=== PATIENT | female | born 1985 | race American Indian/Alaskan Native ===

== ENCOUNTER 2016-06-19 17:41 | Emergency (ER) | payer OTHER ==
[2016-06-19 18:42] VITALS: BP 134/65
--- NOTE | 2016-06-20 07:11 | EDM.PDOC ---
ED HPI LOWER BACK PAIN/INJURY - General Chief Complaint: Back Pain or Injury Stated Complaint: BACK PAIN Time Seen by Provider: 06/19/16 19:30 Source of Information: Reports: Patient History Limitations: Reports: No limitations - History of Present Illness INITIAL COMMENTS - FREE TEXT/NARRATIVE: Notes chronic back pain but worse x2 days, no injury, took last flexeril. Ibuprofen at noon. Reports pain worse when sitting and leaning back. Has not contacted PCP for med refill. Notes at one time was diagnosed with scoliosis and then told she ddid not. Had asked for referral at some time but was not covered by insurance . Now she is covered. Does not report following up with PCP to request referral again. Location: Reports: lower, paraspinal. Denies: radiating pain Quality: Reports: Ache Improves with: Reports: Other (leaning forward) Worsens with: Reports: Other (sitting) Context: Reports: chronic pain/injury (chronic pain NO recent injury) - Related Data Allergies/ADRs: Allergies Allergy/AdvReac Type Severity Reaction Status Date / Time acetaminophen [From Tylenol] Allergy Cannot Verified 04/22/16 21:37 Remember Penicillins Allergy unknown Verified 04/22/16 21:37 Home Meds: Home Meds Ibuprofen [Motrin] 800 mg PO ASDIRECTED 02/14/16 [History] Cyclobenzaprine [Flexeril] 10 mg PO ASDIRECTED PRN 06/19/16 [History] Diclofenac Sodium [Voltaren 1% Gel] 1 units TOP ASDIRECTED PRN 06/19/16 [History ] Past Medical History - Past Health History Medical/Surgical History: Denies Medical/Surgical History HEENT 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: Impaired vision Cardiovascular 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: None Respiratory 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: None Gastrointestinal 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: None Genitourinary 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: None 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 CASTER 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: 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 Other OB/BYN History: 2002 Musculoskeletal 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: Back pain, chronic, Other (see below) Other Musculoskeletal History: scoliosis Neurological 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: None Psychiatric 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: None Endocrine/Metabolic 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: None Hematologic 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: None Immunologic 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: None Oncologic (Cancer) 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: None Other [facility] [place] - Infectious Disease History Infectious Disease 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: Chicken pox - Past Surgical History Head Surgeries/Procedures: Reports: None GI Surgical 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: Cholecystectomy Other Female Surgeries/Procedures: 06/19/2016 just starting to spot like she does before her period. Social & Family History - Family History Family Medical History: Noncontributory - Tobacco Use Smoking Status *Q: Current Every Day Smoker Years of Tobacco use: 10 Packs/Tins Daily: 0.5 Second Hand Smoke Exposure: Yes - Caffeine Use Caffeine Use: Reports: Coffee - Recreational Drug Use Recreational Drug Use: No ED ROS GENERAL - Review of Systems Review Of Systems: See Below Constitutional: Reports: no symptoms GI/Abdominal: Reports: No symptoms Musculoskeletal: Reports: back pain. Denies: leg pain Skin: Reports: no symptoms Neurological: Reports: no symptoms ED EXAM,LOWER BACK PAIN/INJURY - Physical Exam Exam: See Below Exam Limited By: No limitations General Appearance: alert, other (agitated) Eye Exam: bilateral eye: EOMI Ears: normal external exam Nose: normal inspection Throat/Mouth: Normal inspection Head: normocephalic Neck: full range of motion Respiratory/Chest: no respiratory distress, lungs clear Cardiovascular: regular rate, rhythm Back Exam: normal inspection, full range of motion, vertebral tenderness (low lumbar with palpation. Stand from sitting position with ease demonstrates bending forward to make wesley feel better able to touch finger to floor. returns to sitting position on cart without facial grimace or guarding. able to scoot back someme guarding with twisting movment. ) Extremities: normal inspection, normal range of motion Neurological: alert, normal plantar flexion, normal gait, no motor/sensory deficits, oriented x 3 Psychiatric: other (agitated upon entering exam room increases with discussion of treatment plan with antiinflamatory heat alternating with ice. Offered xray, explained that since no injury would likely be unchanged. No indication for CT. Noted that narcotics would not be appropriate with finding. ) Course - Vital Signs Last Recorded V/S: Last Vital Signs Temp 97.9 F 06/19/16 18:22 Pulse 70 06/19/16 18:22 Resp 16 06/19/16 18:22 BP 134/65 06/19/16 18:22 Pulse Ox 100 06/19/16 18:22 - Orders/Labs/Meds Labs: Laboratory Tests 06/19/16 06/19/16 06/19/16 Range/Units 18:35 18:35 18:35 Urine Color Dark yellow (YELLOW) Urine Appearance Turbid (CLEAR) Urine pH 5.0 (5.0-9.0) Ur Specific [place] 1.025 (1.005-1.030) Urine Protein Trace H (NEGATIVE) Urine Glucose (UA) Negative (NEGATIVE) Urine Ketones Trace H (NEGATIVE) Urine Occult Blood Large H (NEGATIVE) Urine Nitrite Negative (NEGATIVE) Urine Bilirubin Negative (NEGATIVE) Urine Urobilinogen 0.2 (0.2-1.0) mg/dL Ur Leukocyte Esterase Negative (NEGATIVE) Urine RBC >100 H /HPF Urine WBC 0-5 (0-5/HPF) /HPF Ur Epithelial Cells Few /HPF Urine Bacteria Moderate H (0-FEW/HPF) /HPF Urine HCG, Qual Negative Urine Opiates Screen Negative (NEGATIVE) Ur Oxycodone Screen Positive H (NEGATIVE) Urine Methadone Screen Negative (NEGATIVE) Ur Barbiturates Screen Negative (NEGATIVE) U Tricyclic Antidepress Negative (NEGATIVE) Ur Phencyclidine Scrn Negative (NEGATIVE) Ur Amphetamine Screen Negative (NEGATIVE) U Methamphetamines Scrn Negative (NEGATIVE) Urine MDMA Screen Negative (NEGATIVE) U Benzodiazepines Scrn Negative (NEGATIVE) Urine Cocaine Screen Negative (NEGATIVE) U Marijuana (THC) Screen Positive H (NEGATIVE) - Re-Assessments/Exams Free Text/Narrative Re-Assessment/Exam: Patient left verbally aggressive. Expressed displeasure when asked for input into to treatment plan. Appeared to be increasingly upset when informed narcotics would not be provided for this encounter and other alternatives recommended. Departure - Departure Time of Disposition: 20:50 Disposition: Left Without Being Seen 07 Condition: undetermined Clinical Impression: Back pain, chronic Qualifiers: Back pain location: low back pain Back pain laterality: right Sciatica presence : without sciatica Qualified Code(s): M54.5 - Low back pain Forms: ED Department Discharge
== END 2016-06-19 19:49 | disposition left against medical advice (07) ==
LOC: DL.ED 17:41
DX: M54.5 Low back pain (principal); G89.29 Other chronic pain; F17.210 Nicotine dependence, cigarettes, uncomplicated; Z88.6 Allergy status to analgesic agent; Z88.0 Allergy status to penicillin; Z90.49 Acquired absence of other specified parts of digestive tract
CPT/HCPCS: 80305; 81001; 81025; 99282

== ENCOUNTER 2016-08-30 18:37 | Emergency (ER) | payer MEDICAID, OTHER ==
[2016-08-30 20:05] VITALS: BP 109/61
== END 2016-08-30 21:26 | disposition left against medical advice (07) ==
LOC: DL.ED 18:37
DX: Z53.21 Procedure and treatment not carried out due to patient leaving prior to being seen by health care provider (principal)

== ENCOUNTER 2016-09-29 07:33 | Day surgery (SDC) | payer MEDICAID, OTHER ==
[~2016-09-29 07:33] MED LIST: Midazolam 1 MG/ML 2 ML SDV IV ONE; Midazolam 1 MG/ML 2 ML SDV ONE; fentaNYL 100 MCG/2 ML SDV IV ONE; fentaNYL 100 MCG/2 ML SDV ONE
[2016-09-29] MEDS ORDERED: Dextrose 5%-0.45% NaCl 1,000 ML IV SCH (07:50)
[2016-09-29] MEDS ORDERED: fentaNYL 100 MCG/2 ML SDV IV ONE ×2 (08:00→08:01)
[2016-09-29] MEDS ORDERED: Midazolam 1 MG/ML 2 ML SDV IV ONE ×2 (08:01)
[2016-09-29 10:09] VITALS: BP 114/61
--- NOTE | 2016-09-29 12:48 | OR ---
DATE: 09/29/2016 PROCEDURES: Esophagogastroduodenoscopy and multiple pinch biopsies. INSTRUMENT USED: GIF-Q180 Olympus video panendoscope. PREMEDICATIONS: No oral topical anesthesia used. Fentanyl 100 mcg intravenous, Versed 2 mg intravenous. The procedure was done under pulse oximetry, BP recording, and chief librarian music department. INDICATION: The patient with persistent upper abdominal pain, dyspepsia, as well as intermittent high dysphagia, unexplained and not responsive to medical measures. Esophagogastroduodenoscopy is performed for detection of any active erosive lesions, [place] esophagus and/or malignancy also under consideration, H. pylori status to be determined, small bowel biopsies to be obtained for celiac disease if indicated, esophageal dilatations if indicated, endoscopic hemostasis therapy if needed. DESCRIPTION OF PROCEDURE: The scope was passed with ease. Adequate visualization of the esophagus was made from proximal to distal areas. No upper esophageal lesions identified. No distal esophageal stricture. No uphill or downhill esophageal varices. No Rabia Boyd tear. No evidence of erosive esophagitis by Benton criteria. No esophageal polyp or tumor mass identified. Z-line was seen at around 40 cm distal to the oral verge, configuration consistent with grade 1 by ZAP classification. No proximal gastric varices noted. Gastric fundus examination by retroflexion showed no polypoid lesions. No gastric ulcer, malignant mass, or vascular ectasia identified. Duodenal bulb showed no ulcer. Visualized second part of the duodenum was unremarkable. Multiple pinch biopsies, 4 in number were taken from different areas of the second part of the duodenum, and tissues were also obtained from the duodenal bulb at 9 and 12 o'clock positions and sent for any histopathologic evidence of celiac disease. Multiple pinch biopsies were obtained from the gastric antrum and proximal body and sent for PyloriTek test for H. pylori and histopathology. No bleeding was noted from any of the visualized areas at the completion of the examination. Photographs were taken of the duodenal bulb, gastric antrum, fundus, and distal esophagus. IMPRESSION: Normal study. The patient tolerated the procedure well. [facility] /[id number]
--- NOTE | 2016-09-29 13:16 | LETTER ---
09/29/2016 [place] [address] RE: RADHANAOMI TOLEDO : 1985 Dear Ms. Arriaza: Ms. Naomi Nielson had esophagogastroduodenoscopy done this morning and she tolerated the procedure well. I herewith send a copy of the endoscopy note and photographs for your review. She is put on omeprazole 20 mg p.o. daily at a.m., response to be noted. Thank you. Sincerely, [facility] /[id number]
== END 2016-09-29 10:16 | disposition home or self-care (01) ==
LOC: DL.ENDO 07:33
PROVIDERS: ATTEND Internal Medicine Gastroenterology
DX: K29.50 Unspecified chronic gastritis without bleeding (principal); E66.9 Obesity, unspecified; Z88.0 Allergy status to penicillin; Z88.8 Allergy status to other drugs, medicaments and biological substances; Z79.899 Other long term (current) drug therapy; Z90.49 Acquired absence of other specified parts of digestive tract
CPT/HCPCS: 43239; 87077; J2250; J3010; J7042

== ENCOUNTER 2017-08-20 12:36 | Emergency (ER) | payer MEDICAID, OTHER ==
[2017-08-20 12:51] VITALS: BP 121/84
[2017-08-20 13:45] LABS: CHLORIDE,CL 111 mmol/L (101-111); SODIUM,NA 142 mmol/L (135-145)
== END 2017-08-20 13:50 | disposition left against medical advice (07) ==
LOC: DL.ED 12:36
DX: Z53.20 Procedure and treatment not carried out because of patient's decision for unspecified reasons (principal)
CPT/HCPCS: 36415; 80053; 85025; 99284; G0480

== ENCOUNTER 2017-10-21 13:08 | Emergency (ER) | payer MEDICAID, OTHER ==
[2017-10-21 13:19] VITALS: BP 127/80
[2017-10-21] MEDS ORDERED: Sodium Chloride 0.9% 1,000 ML IV SCH (13:30)
[2017-10-21] MEDS ORDERED: Ondansetron 4 MG/2 ML SDV IV ONE (13:56)
[2017-10-21 14:06] LABS: ACETAMINOPHEN < 10; ANION GAP 11.3; CHLORIDE,CL 106 mmol/L (101-111); SODIUM,NA 139 mmol/L (135-145)
[2017-10-21] MEDS ORDERED: HYDROmorphone 0.5 MG/0.5 ML Syringe IVPUSH ONE (14:25)
--- NOTE | 2017-10-21 14:26 | EDM.PDOC ---
Scribed by Josie Rizzo 10/21/17 4054 for Teddy Phillips PA ED HPI GENERAL MEDICAL PROBLEM - General Chief Complaint: Abdominal Pain Stated Complaint: RT SIDE PAIN Time Seen by Provider: 10/21/17 13:19 Source of Information: Reports: Patient, RN, RN Notes Reviewed History Limitations: Reports: No Limitations - History of Present Illness INITIAL COMMENTS - FREE TEXT/NARRATIVE: Patient presents to ER with right lower abdominal pain that radiates to her vagina. This started at 07:30 a.m. She increased her water intake but took no medications. She has a history of previous UTIs. She has a kidney doctor because she has a mass on her left kidney. She had a bowel movement this morning x1 with increased pain. She had had no bowel movement x5 to 6 days before that. Onset: Today Duration: Getting Worse Location: Reports: Abdomen Quality: Reports: Ache Severity: Severe Improves with: Reports: None Worsens with: Reports: None Associated Symptoms: Reports: No Other Symptoms Right Abdomen Pain Score (Numeric/FACES): 6 - Related Data Allergies Allergy/AdvReac Type Severity Reaction Status Date / Time acetaminophen [From Tylenol] Allergy Rash Verified 10/21/17 13:19 Penicillins Allergy unknown Verified 10/21/17 13:19 Home Meds: Home Meds Ibuprofen [Motrin] 800 mg PO Q6H 02/14/16 [History] Cyclobenzaprine [Flexeril] 1 tab PO TID PRN 09/27/16 [History] Gabapentin [Neurontin] 100 mg PO BEDTIME 08/20/17 [History] Metoclopramide HCl [Reglan] 125 mg PO ASDIRECTED 08/20/17 [History] Ondansetron HCl [Zofran] 4 mg PO ASDIRECTED 08/20/17 [History] Prochlorperazine [Compazine] 5 mg PO ASDIRECTED 08/20/17 [History] Past Medical History - Past Health History Medical/Surgical History: Denies Medical/Surgical History HEENT 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: Hard of Hearing, Impaired Vision, Other (See Below) Other HEENT History: WEARS CORRECTIVE LENS. 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 KNEE INJECTIONS. HX OF FRACTURE - L ANKLE, R WRIST Neurological 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: None Psychiatric 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: None Endocrine/Metabolic 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: Obesity/BMI 30+ Hematologic 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: Anemia Immunologic 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: None Oncologic (Cancer) 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: Cervix, Leukemia Dermatologic 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: Other (See Below) Other Dermatologic History: going [place] [facility] [place] HX OF ROSCEA - Infectious Disease History Infectious Disease 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: Chicken Pox, Helicobacter Pylori, Human Papilloma Virus (HPV) - Past Surgical History Head Surgeries/Procedures: Reports: None HEENT Surgical 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: None Cardiovascular Surgical 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: None Respiratory Surgical 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: None GI Surgical 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: Cholecystectomy, Colonoscopy, EGD Female Surgical 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: D&C, LEEP Other Female Surgeries/Procedures: 06/19/2016 just starting to spot like she does before her period. Endocrine Surgical 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: None Neurological Surgical 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: None Musculoskeletal Surgical 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: None Oncologic Surgical 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: None Dermatological Surgical 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: None Social & Family History - Family History Family Medical History: Noncontributory - Caffeine Use Caffeine Use: Reports: Coffee Other Caffeine Use: AVERAGE OF 5 8OZ CAFFIENATED BEVERAGES DAILY ED ROS GENERAL - Review of Systems Review Of Systems: ROS reveals no pertinent complaints other than HPI. ED EXAM, GI/ABD - Physical Exam Exam: See Below Exam Limited By: No Limitations General Appearance: Alert, WD/WN, No Apparent Distress Eyes: Bilateral: Normal Appearance Ears: Normal External Exam, Normal Canal, Hearing Grossly Normal, Normal TMs Nose: Normal Inspection, Normal Mucosa, No Blood Throat/Mouth: Normal Inspection, Normal Lips, Normal Teeth, Normal Gums, Normal Oropharynx, Normal Voice, No Airway Compromise Head: Atraumatic, Normocephalic Neck: Normal Inspection, Supple, Non-Tender, Full Range of Motion Respiratory/Chest: No Respiratory Distress, Lungs Clear, Normal Breath Sounds, No Accessory Muscle Use, Chest Non-Tender Cardiovascular: Normal Peripheral Pulses, Regular Rate, Rhythm, No Edema, No Gallop, No JVD, No Murmur, No Rub GI/Abdominal Exam: Normal Bowel Sounds, No Organomegaly, Rebound (tenderness), Other (right lower quadrant pain. Midlower abdominal pain to palpation.) (Female) Exam: Deferred Rectal (Female) Exam: Deferred Back Exam: Normal Inspection, Full Range of Motion, NT Extremities: Normal Inspection, Normal Range of Motion, Non-Tender, Normal Capillary Refill, No Pedal Edema Neurological: Alert, Oriented, CN II-XII Intact, Normal Cognition, Normal Gait, Normal Reflexes, No Motor/Sensory Deficits Psychiatric: Normal Affect, Normal Mood Skin Exam: Warm, Dry, Intact, Normal Color, No Rash Lymphatic: No Adenopathy Course - Vital Signs Last Recorded V/S: Last Vital Signs Temp 36.4 C 10/21/17 13:14 Pulse 88 10/21/17 13:14 Resp 16 10/21/17 13:14 BP 127/80 10/21/17 13:14 Pulse Ox 100 10/21/17 13:14 - Orders/Labs/Meds Orders: Active Orders 24 hr Category Date Time Status CULTURE BLOOD [BC] Stat Lab 10/21/17 13:24 Ordered DRUG SCREEN URINE BIORAD [URCHEM] Stat Lab 10/21/17 13:24 Ordered HCG QUALITATIVE,URINE [URCHEM] Stat Lab 10/21/17 13:24 Ordered UA W/MICROSCOPIC [URIN] Stat Lab 10/21/17 13:24 Ordered Sodium Chloride 0.9% [Normal Saline] 1,000 ml Med 10/21/17 13:30 Ordered IV ASDIRECTED Medication Orders Sodium Chloride (Normal Saline) 1,000 mls @ 999 mls/hr IV ASDIRECTED YVETTE Last Admin: 10/21/17 13:42 Dose: 999 mls/hr Labs: Laboratory Tests 10/21/17 10/21/17 10/21/17 Range/Units 13:29 13:29 13:29 WBC (5.0-10.0) 10^3/uL RBC (4.2-5.4) 10^6/uL Hgb (12.0-16.0) g/dL Hct (37.0-47.0) % MCV (80-100) fL MCH (27.0-34.0) pg MCHC (33.0-35.0) g/dL Plt Count (150-450) 10^3/uL Neut % (Auto) (42.2-75.2) % Lymph % (Auto) (20.5-50.1) % [place] % (Auto) (2-8) % Eos % (Auto) (1.0-3.0) % Baso % (Auto) (0.0-1.0) % Sodium (135-145) mmol/L Potassium (3.6-5.0) mmol/L Chloride (101-111) mmol/L Carbon Dioxide (21.0-31.0) mmol/L Anion Gap BUN (7-18) mg/dL Creatinine (0.6-1.3) mg/dL Est Cr Clr Drug Dosing mL/min Estimated GFR (MDRD) BUN/Creatinine Ratio Glucose (74-105) mg/dL Lactic Acid (0.5-2.2) mmol/L Calcium (8.4-10.2) mg/dl Total Bilirubin (0.2-1.0) mg/dL AST (10-42) IU/L ALT (10-60) IU/L Alkaline Phosphatase (42-121) IU/L Total Protein (6.7-8.2) g/dl Albumin (3.2-5.5) g/dl Globulin Albumin/Globulin Ratio Amylase (28-100) U/L Lipase (22-51) U/L Urine Color Yellow (YELLOW) Urine Appearance Clear (CLEAR) Urine pH 7.0 (5.0-9.0) Ur Specific [place] 1.020 (1.005-1.030) Urine Protein Negative (NEGATIVE) Urine Glucose (UA) Negative (NEGATIVE) Urine Ketones 15 H (NEGATIVE) Urine Occult Blood Moderate H (NEGATIVE) Urine Nitrite Negative (NEGATIVE) Urine Bilirubin Small H (NEGATIVE) Urine Urobilinogen 1.0 (0.2-1.0) mg/dL Ur Leukocyte Esterase Trace H (NEGATIVE) Urine RBC 0-5 /HPF Urine WBC 0-5 (0-5/HPF) /HPF Ur Epithelial Cells Many H /HPF Calcium Oxalate Crystal Few H /HPF Urine Bacteria Few (0-FEW/HPF) /HPF Urine Mucus Moderate H /LPF Urinalysis Comment See note Urine HCG, Qual Negative Urine Opiates Screen Negative (NEGATIVE) Ur Oxycodone Screen Positive H (NEGATIVE) Urine Methadone Screen Negative (NEGATIVE) Acetaminophen Ur Barbiturates Screen Negative (NEGATIVE) U Tricyclic Antidepress Negative (NEGATIVE) Ur Phencyclidine Scrn Negative (NEGATIVE) Ur Amphetamine Screen Positive H (NEGATIVE) U Methamphetamines Scrn Positive H (NEGATIVE) Urine MDMA Screen Negative (NEGATIVE) U Benzodiazepines Scrn Negative (NEGATIVE) Urine Cocaine Screen Negative (NEGATIVE) U Marijuana (THC) Screen Positive H (NEGATIVE) 10/21/17 10/21/17 10/21/17 Range/Units 13:35 13:35 13:35 WBC 15.2 H (5.0-10.0) 10^3/uL RBC 4.76 (4.2-5.4) 10^6/uL Hgb 14.4 (12.0-16.0) g/dL Hct 42.2 (37.0-47.0) % MCV 88.7 (80-100) fL MCH 30.3 (27.0-34.0) pg MCHC 34.1 (33.0-35.0) g/dL Plt Count 186 (150-450) 10^3/uL Neut % (Auto) 91.4 H (42.2-75.2) % Lymph % (Auto) 4.0 L (20.5-50.1) % [place] % (Auto) 3.8 (2-8) % Eos % (Auto) 0.6 L (1.0-3.0) % Baso % (Auto) 0.2 (0.0-1.0) % Sodium (135-145) mmol/L Potassium (3.6-5.0) mmol/L Chloride (101-111) mmol/L Carbon Dioxide (21.0-31.0) mmol/L Anion Gap BUN (7-18) mg/dL Creatinine (0.6-1.3) mg/dL Est Cr Clr Drug Dosing mL/min Estimated GFR (MDRD) BUN/Creatinine Ratio Glucose (74-105) mg/dL Lactic Acid 1.2 (0.5-2.2) mmol/L Calcium (8.4-10.2) mg/dl Total Bilirubin (0.2-1.0) mg/dL AST (10-42) IU/L ALT (10-60) IU/L Alkaline Phosphatase (42-121) IU/L Total Protein (6.7-8.2) g/dl Albumin (3.2-5.5) g/dl Globulin Albumin/Globulin Ratio Amylase 25 L (28-100) U/L Lipase 19 L (22-51) U/L Urine Color (YELLOW) Urine Appearance (CLEAR) Urine pH (5.0-9.0) Ur Specific [place] (1.005-1.030) Urine Protein (NEGATIVE) Urine Glucose (UA) (NEGATIVE) Urine Ketones (NEGATIVE) Urine Occult Blood (NEGATIVE) Urine Nitrite (NEGATIVE) Urine Bilirubin (NEGATIVE) Urine Urobilinogen (0.2-1.0) mg/dL Ur Leukocyte Esterase (NEGATIVE) Urine RBC /HPF Urine WBC (0-5/HPF) /HPF Ur Epithelial Cells /HPF Calcium Oxalate Crystal /HPF Urine Bacteria (0-FEW/HPF) /HPF Urine Mucus /LPF Urinalysis Comment Urine HCG, Qual Urine Opiates Screen (NEGATIVE) Ur Oxycodone Screen (NEGATIVE) Urine Methadone Screen (NEGATIVE) Acetaminophen < 10 Ur Barbiturates Screen (NEGATIVE) U Tricyclic Antidepress (NEGATIVE) Ur Phencyclidine Scrn (NEGATIVE) Ur Amphetamine Screen (NEGATIVE) U Methamphetamines Scrn (NEGATIVE) Urine MDMA Screen (NEGATIVE) U Benzodiazepines Scrn (NEGATIVE) Urine Cocaine Screen (NEGATIVE) U Marijuana (THC) Screen (NEGATIVE) 10/21/17 Range/Units 13:35 WBC (5.0-10.0) 10^3/uL RBC (4.2-5.4) 10^6/uL Hgb (12.0-16.0) g/dL Hct (37.0-47.0) % MCV (80-100) fL MCH (27.0-34.0) pg MCHC (33.0-35.0) g/dL Plt Count (150-450) 10^3/uL Neut % (Auto) (42.2-75.2) % Lymph % (Auto) (20.5-50.1) % [place] % (Auto) (2-8) % Eos % (Auto) (1.0-3.0) % Baso % (Auto) (0.0-1.0) % Sodium 139 (135-145) mmol/L Potassium 3.3 L (3.6-5.0) mmol/L Chloride 106 (101-111) mmol/L Carbon Dioxide 25.0 (21.0-31.0) mmol/L Anion Gap 11.3 BUN 10 (7-18) mg/dL Creatinine 0.8 (0.6-1.3) mg/dL Est Cr Clr Drug Dosing 95.38 mL/min Estimated GFR (MDRD) > 60 BUN/Creatinine Ratio 12.50 Glucose 73 L (74-105) mg/dL Lactic Acid (0.5-2.2) mmol/L Calcium 9.3 (8.4-10.2) mg/dl Total Bilirubin 1.2 H (0.2-1.0) mg/dL AST 23 (10-42) IU/L ALT 14 (10-60) IU/L Alkaline Phosphatase 56 (42-121) IU/L Total Protein 7.2 (6.7-8.2) g/dl Albumin 4.5 (3.2-5.5) g/dl Globulin 2.7 Albumin/Globulin Ratio 1.67 Amylase (28-100) U/L Lipase (22-51) U/L Urine Color (YELLOW) Urine Appearance (CLEAR) Urine pH (5.0-9.0) Ur Specific [place] (1.005-1.030) Urine Protein (NEGATIVE) Urine Glucose (UA) (NEGATIVE) Urine Ketones (NEGATIVE) Urine Occult Blood (NEGATIVE) Urine Nitrite (NEGATIVE) Urine Bilirubin (NEGATIVE) Urine Urobilinogen (0.2-1.0) mg/dL Ur Leukocyte Esterase (NEGATIVE) Urine RBC /HPF Urine WBC (0-5/HPF) /HPF Ur Epithelial Cells /HPF Calcium Oxalate Crystal /HPF Urine Bacteria (0-FEW/HPF) /HPF Urine Mucus /LPF Urinalysis Comment Urine HCG, Qual Urine Opiates Screen (NEGATIVE) Ur Oxycodone Screen (NEGATIVE) Urine Methadone Screen (NEGATIVE) Acetaminophen Ur Barbiturates Screen (NEGATIVE) U Tricyclic Antidepress (NEGATIVE) Ur Phencyclidine Scrn (NEGATIVE) Ur Amphetamine Screen (NEGATIVE) U Methamphetamines Scrn (NEGATIVE) Urine MDMA Screen (NEGATIVE) U Benzodiazepines Scrn (NEGATIVE) Urine Cocaine Screen (NEGATIVE) U Marijuana (THC) Screen (NEGATIVE) Meds: Medications Generic Name Dose Route Start Last Admin Trade Name Freq PRN Reason Stop Dose Admin Sodium Chloride 1,000 mls @ 999 mls/hr 10/21/17 13:30 10/21/17 13:42 Normal Saline IV 999 mls/hr ASDIRECTED YVETTE Administration Discontinued Medications Generic Name Dose Route Start Last Admin Trade Name Magi PRN Reason Stop Dose Admin Ondansetron HCl 4 mg 10/21/17 13:56 10/21/17 14:00 Zofran IV 10/21/17 13:57 4 mg ONETIME ONE Administration - Re-Assessments/Exams Free Text/Narrative Re-Assessment/Exam: 10/21/17 14:01 Initially the patient denied any drug or ETOH use, but when she was confronted with the drug screen results. The patient admitted to taking Oxycodone yesterday for chronic pain. The patient also admitted to using meth and smoking marijuana. The patient then reports that she has some "mental health issues" and she is going to be treated for "those things." Departure - Departure Time of Disposition: 14:22 Disposition: DC/Tfer to [facility] 02 Condition: Poor Clinical Impression: Abdominal pain Qualifiers: Abdominal location: right lower quadrant Qualified Code(s): R10.31 - Right lower quadrant pain Leukocytosis Qualifiers: Leukocytosis type: bandemia Qualified Code(s): D72.825 - Bandemia - Discharge Information *PRESCRIPTION DRUG MONITORING PROGRAM REVIEWED*: No *COPY OF PRESCRIPTION DRUG MONITORING REPORT IN PATIENT LIZZETH: No Forms: Interfacility Transfer EMTALA Care Plan Goals: Discussed the examination, history and lab results during the visit. The patient was given IV Zofran and IV Dilaudid prior to transport. The patient will be transported by [facility]. - My Orders Last 24 Hours: My Active Orders 10/21/17 13:24 CULTURE BLOOD [BC] Stat DRUG SCREEN URINE BIORAD [URCHEM] Stat HCG QUALITATIVE,URINE [URCHEM] Stat UA W/MICROSCOPIC [URIN] Stat 10/21/17 13:30 Sodium Chloride 0.9% [Normal Saline] 1,000 ml IV ASDIRECTED - Assessment/Plan Last 24 Hours: My Active Orders 10/21/17 13:24 CULTURE BLOOD [BC] Stat DRUG SCREEN URINE BIORAD [URCHEM] Stat HCG QUALITATIVE,URINE [URCHEM] Stat UA W/MICROSCOPIC [URIN] Stat 10/21/17 13:30 Sodium Chloride 0.9% [Normal Saline] 1,000 ml IV ASDIRECTED I have read and agree with the documentation that has been completed regarding this visit. By signing this record, I attest that the documentation was completed in my physical presence and is an accurate record of the encounter.
== END 2017-10-21 14:57 ==
LOC: DL.ED 13:08
DX: R10.31 Right lower quadrant pain (principal); D72.825 Bandemia; E66.9 Obesity, unspecified; Z88.0 Allergy status to penicillin; Z88.8 Allergy status to other drugs, medicaments and biological substances
CPT/HCPCS: 36415; 80053; 80305; 81001; 81025; 82150; 83605; 83690; 85025; 87040; 87077; 87186; 96374; 96375; 99284; 99285; G0480; J1170; J2405; J7030

== ENCOUNTER 2022-01-08 13:18 | Inpatient (IN) | payer MEDICAID, OTHER ==
[~2022-01-08 13:18] MED LIST changes: -Midazolam 1 MG/ML 2 ML SDV IV ONE; -Midazolam 1 MG/ML 2 ML SDV ONE; +Sodium Chloride 0.9% 10 ML Syringe FLUSH PRN; -fentaNYL 100 MCG/2 ML SDV IV ONE; -fentaNYL 100 MCG/2 ML SDV ONE
[2022-01-08] MEDS ORDERED: Sodium Chloride 0.9% 1,000 ML IV ONE ×2 (13:38→15:01)
[2022-01-08 13:52] LABS: ANION GAP 11.4 mEq/L (7-13); CHLORIDE,CL 103 mmol/L (98-107); SODIUM,NA 138 mmol/L (136-145)
[2022-01-08 13:54] LABS: ESTIMATED GFR 106 mL/min (>=60)
[2022-01-08 14:05] LABS: AMPHETAMINES,URINE POSITIVE (NEGATIVE); BARBITURATES,URINE NEGATIVE (NEGATIVE); BENZODIAZEPINE,URINE NEGATIVE (NEGATIVE); MDMA (ECSTASY), URINE NEGATIVE (NEGATIVE); METHADONE,URINE NEGATIVE (NEGATIVE); METHAMPHETAMINES,URINE POSITIVE (NEGATIVE); OPIATES,URINE POSITIVE (NEGATIVE); OXYCODONE,URINE NEGATIVE (NEGATIVE); PHENCYCLIDINE,URINE NEGATIVE (NEGATIVE); TCA,URINE NEGATIVE (NEGATIVE)
[2022-01-08] MEDS ORDERED: cefTRIAXone 2 GM in Sodium Chloride 0.9% 100 ML IV ONE (14:37)
[2022-01-08] MEDS ORDERED: Magnesium Sulfate/Water 2 GM in Premix Bag 1 BAG IV ONE (14:49)
[2022-01-08] MEDS ORDERED: Doxycycline Monohydrate 100 MG Cap PO ONE (15:09)
[2022-01-08] MEDS ORDERED: metroNIDAZOLE 250 MG Tab PO ONE (15:10)
[2022-01-08] MEDS ORDERED: oxyCODONE 5 MG Tab PO PRN (17:14)
[2022-01-08] MEDS ORDERED: Ondansetron 4 MG/2 ML SDV IVPUSH PRN (17:14)
[2022-01-08] MEDS ORDERED: Morphine 2 MG/ML SYRINGE IVPUSH PRN (17:14)
[2022-01-08] MEDS ORDERED: LORazepam 2 MG/ML SDV IVPUSH PRN (17:14)
[2022-01-08] MEDS ORDERED: Acetaminophen 325 MG Tab PO PRN (17:14)
[2022-01-08] MEDS ORDERED: Lactated Ringers 1,000 ML IV SCH (17:15)
[2022-01-08] MEDS ORDERED: Pantoprazole 40 MG Vial IVPUSH SCH (17:30)
[2022-01-08] MEDS ORDERED: Azithromycin 250 MG Tab PO ONE (17:31)
[2022-01-08] MEDS ORDERED: Naproxen 250 MG Tab PO PRN (19:21)
[2022-01-08] MEDS ORDERED: metroNIDAZOLE 250 MG Tab PO SCH (21:00)
[2022-01-09 00:36] VITALS: BP 113/73; PULSE 59
[2022-01-09] MEDS ORDERED: Nicotine 7 MG/24 Hr Patch TRDERM SCH (09:00)
[2022-01-09] MEDS ORDERED: cefTRIAXone 2 GM in Sodium Chloride 0.9% 100 ML IV SCH (09:00)
[2022-01-09] MEDS ORDERED: Enoxaparin 40 MG/0.4 ML Syringe SUBCUT SCH (09:00)
[2022-01-10] MEDS ORDERED: Vancomycin 1 GM SDV ONE ×2 (14:43→21:34)
[2022-01-10] MEDS ORDERED: Sodium Chloride 0.9% 250 ML ONE ×2 (14:48→21:34)
[2022-01-11] MEDS ORDERED: Sodium Chloride 0.9% 250 ML ONE (06:10)
[2022-01-11] MEDS ORDERED: Vancomycin 1 GM SDV ONE (06:10)
[2022-01-11] MEDS ORDERED: traMADol 50 MG Tab ONE ×2 (12:43→19:50)
[2022-01-11] MEDS ORDERED: Potassium Chloride 10 MEQ Tab.ER ONE (18:06)
[2022-01-11] MEDS ORDERED: Doxycycline Monohydrate 100 MG Cap ONE (19:50)
[2022-01-12 07:47] LABS: C.TRACHOMATIS BY TMA Negative (Negative); N.GONORRHOEAE BY TMA Negative (Negative)
[2022-01-12] MEDS ORDERED: Doxycycline Monohydrate 100 MG Cap ONE (09:20)
[2022-02-03 10:55] LABS: ANION GAP 9.5 mEq/L (7-13)
[2022-02-06 10:48] LABS: ANION GAP 10.5 mEq/L (7-13)
[2022-02-06 13:28] LABS: ANION GAP 9.3 mEq/L (7-13)
[2022-02-06 15:24] LABS: ANION GAP 8.6 mEq/L (7-13)
== END 2022-01-12 12:30 | disposition home or self-care (01) | DRG 872 ==
LOC: DL.ED 13:18 → DL.MS 15:44 → DL.ZCENSUS 01-09 13:34
PROVIDERS: ADMIT Internal Medicine; ATTEND Internal Medicine
DX: A41.51 Sepsis due to Escherichia coli [E. coli] (principal); N39.0 Urinary tract infection, site not specified; N83.209 Unspecified ovarian cyst, unspecified side; N73.9 Female pelvic inflammatory disease, unspecified; H54.7 Unspecified visual loss; H91.92 Unspecified hearing loss, left ear; G89.29 Other chronic pain; E66.9 Obesity, unspecified; Z86.19 Personal history of other infectious and parasitic diseases; Z88.6 Allergy status to analgesic agent; Z87.440 Personal history of urinary (tract) infections; Z88.0 Allergy status to penicillin; Z90.49 Acquired absence of other specified parts of digestive tract; F17.210 Nicotine dependence, cigarettes, uncomplicated; F15.10 Other stimulant abuse, uncomplicated; F11.10 Opioid abuse, uncomplicated; F12.10 Cannabis abuse, uncomplicated; Z68.22 Body mass index [BMI] 22.0-22.9, adult; Z20.822 Contact with and (suspected) exposure to COVID-19
CPT/HCPCS: 36415; 76857; 80053; 80305-QW; 80307; 81001; 81025; 83605; 83690; 83735; 84145; 85025; 86140; 87040; 87086; 87088; 87186; 87340; 87389; 87491; 87563; 87591; 96361; 96365; 96367; 99285; 99285-25; A9270-GY; C9113; J0696; J2270; J2405; J3475; J3490; J7030; J7120; U0002